=== PATIENT | male | born 1995 | race Caucasian/White ===

== ENCOUNTER 2017-03-06 14:44 | Emergency (ER) | payer BC ==
[~2017-03-06] VITALS: Ht 182.9 cm; Wt 90.7 kg
[2017-03-06] MEDS ORDERED: EMS NS 0.9%(*) 1000 ML BAG 1,000 ML IV ONE (15:10)
--- NOTE | 2017-03-06 15:20 | ER Report ---
History and Physical Time Seen By MD: 14:50 Hx. of Stated Complaint: HIT A TREE WHILE SKIING. LEFT HIP/BUTT CHEEK PAIN (MARCK HERMAN-NICHO) HPI/ROS CHIEF COMPLAINT: Ski accident HISTORY OF PRESENT ILLNESS: This is a 21-year-old male [place] and injured his left hip. Patient states that he was skiing down a run lost control started skipping on his bottom, hit a tree with a glancing blow, then fell over. He was unable to get up without pain to the left hip. He denies hitting his head, no loc, no c-spine pain. The skip hoist operator did transport the patient to the skip hoist operator hut, EMS pick the patient up and was transported to the ED. An IV was started en route, 1 L of normal saline was given, he was also given a total of 150 g of IV fentanyl and round. Patient has no other complaints no nausea, vomiting, shortness of breath, chest pain, abdominal pain, loss of bowel or bladder, no aches, chills, fevers. REVIEW OF SYSTEMS: Constitutional: No fever, no chills. Eyes: No discharge. ENT: No sore throat. Cardiovascular: No chest pain, no palpitations. Respiratory: No cough, no shortness of breath. Gastrointestinal: No abdominal pain, no vomiting. Genitourinary: No hematuria. Musculoskeletal: As above. Skin: No rashes. Neurological: No headache. (MARCK HERMAN-NICHO) Allergies: Coded Allergies: Penicillins (Verified Allergy, Unknown, 03/06/17) Home Meds No Active Prescriptions or Reported Meds Past Medical/Surgical History Patient has a past medical and surgical history of autism, tonsillectomy, wisdom teeth extraction. (MARCK HERMAN-NICHO) Hx Substance Use Disorder: No Hx Alcohol Use: No (MARCK HERMAN) Constitutional Vital Sign - Last 24 Hours 03/06/17 03/06/17 03/06/17 03/06/17 14:44 14:47 15:00 15:14 Temp 97.6 Pulse 93 97 Resp 16 11 B/P (MAP) 128/67 128/67 (87) 120/75 (90) Pulse Ox 96 99 O2 Delivery Room Air 03/06/17 03/06/17 03/06/17 03/06/17 15:29 15:30 15:35 15:50 Pulse 87 100 100 Resp 8 7 12 B/P (MAP) 119/71 (87) Pulse Ox 95 96 97 03/06/17 03/06/17 03/06/17 03/06/17 16:00 16:05 16:14 16:20 Pulse ??? 84 B/P (MAP) ???/??? (1665) 120/77 (91) Pulse Ox 99 03/06/17 03/06/17 03/06/17 03/06/17 16:21 16:30 16:35 16:50 Pulse 95 94 B/P (MAP) 110/51 (70) Pulse Ox 99 98 O2 Flow Rate 2.0 03/06/17 03/06/17 03/06/17 03/06/17 16:55 17:00 17:10 17:25 Pulse 74 91 102 B/P (MAP) 119/64 (82) Pulse Ox 99 100 03/06/17 03/06/17 03/06/17 03/06/17 17:30 17:40 17:55 18:00 Pulse 116 101 B/P (MAP) 131/83 (99) 141/78 (99) Pulse Ox 91 96 03/06/17 03/06/17 03/06/17 03/06/17 18:10 18:25 18:30 18:35 Pulse 107 96 92 B/P (MAP) 106/86 (93) Pulse Ox 99 98 98 03/06/17 18:50 Pulse 88 Pulse Ox 98 ([facility]) Physical Exam General Appearance: The patient is alert, has no immediate need for airway protection and no signs of toxicity. Eyes: Pupils equal and round no pallor or injection. ENT, Mouth: Mucous membranes are moist. Respiratory: There are no retractions, lungs are clear to auscultation. Cardiovascular: Regular rate and rhythm, no murmurs clicks or rubs. Gastrointestinal: Abdomen is soft and non tender, no masses, bowel sounds normal. Neurological: Alert and oriented 4. Moving all extremities. Following all commands. No focal neuro deficits. Skin: Warm and dry, no rashes. Musculoskeletal: Neck is supple non tender. Extremities pain to left hip, unable to lift leg off gurney. No hematoma or swelling noted to left hip. No pain to iliac crest. Pain to femoral head with deep palpation, no crepitus or step-offs noted. Pain to left buttock, no bruising or hematoma noted. No knee or ankle pain. No internal or external rotation of the left leg. DIFFERENTIAL DIAGNOSIS: After history and physical exam differential diagnosis was considered for contusion, femoral neck fracture, pelvic fracture, hematoma. (MARCK HERMAN SHELF STOCKER-BC) Medical Decision Making EKG/Imaging Imaging Location: [facility] - [place] Patient: Mello Alvarado : 1995 Visit/Account:[id number] Date of Sevice: 03/06/2017 EXAMINATION: AP pelvis with lateral left HISTORY: Pain. Skiing accident. COMPARISON: None. FINDINGS: There is linear lucency extending along the superolateral aspect of the left iliac crest, concerning for a nondisplaced iliac fracture. No additional fracture visualized in the bony pelvis or either hip. Joint spaces are preserved at both hips and sacroiliac joints. The proximal femurs appear radiographically intact. Normal mineralization. IMPRESSION: Linear lucency extending along the left iliac crest may represent a nondisplaced fracture. Follow-up pelvis CT could be performed for further evaluation as clinically indicated. Findings were discussed with MARCK HERMAN at 03/06/2017 3:34 PM. Report Dictated By: Prasanna Pandya MD at 03/06/2017 3:29 PM Report E-Signed By: Prasanna Pandya MD at 03/06/2017 3:35 PM WSN:[id number] Location: [facility] - [place] Patient: Mello Alvarado : 1995 Visit/Account:[id number] Date of Sevice: 03/06/2017 ABDOMEN/PELVIS WITH CONTRAST HISTORY: Ski injury TECHNIQUE: Following administration of IV contrast contiguous axial images acquired through the abdomen/pelvis. Coronal and sagittal reformatting also performed. One of the following dose optimization techniques was utilized in the performance of this exam: Automated exposure control; adjustment of the mA and/or kV according to the patient's size; or use of an iterative reconstruction technique. Specific details can be referenced in the facility's radiology CT exam operational policy. CONTRAST: 100 mL Isovue-370 COMPARISON: Radiograph same date with findings concerning for left pelvic fracture. FINDINGS: Visualized lung bases: Negative. Hepatobiliary: Negative. Spleen: Negative. Adrenals: Negative. Pancreas: Negative. Kidneys ureters or bladder: Negative. Genitalia: Negative. GI: Negative. Vessels/spaces/nodes: Negative. Bones/soft tissues: There is a fracture of the left iliac wing which extends inferiorly through the ischium into the left acetabular roof and anterior column of the acetabulum and involving left obturator ring. The inferior pubic ramus is nondisplaced. There is comminution of the acetabular roof with fracture fragments displaced isthmus is 5 mm. There is edema or hemorrhage into the left obturator internus muscle but no free hemorrhage. The right hemipelvis is intact. The proximal femurs are intact. There is L5-S1 spondylolysis. This does not appear to represent acute fractures to the pars interarticularis and precedes the acute injury. Additional findings: None pertinent. IMPRESSION: Fractures through the left pelvis involving the ilium, ischium, and obturator ring. This includes left acetabular fracture which is mildly comminuted involving the anterior column. L5-S1 spondylolysis which appears to be a pre-existing condition rather than acute injury. Report Dictated By: Carlos Back MD at 03/06/2017 4:22 PM Report E-Signed By: Carlos Back MD at 03/06/2017 4:32 PM WSN:[id number] (MARCK HERMAN SHELF STOCKER-BC) ED Course/Re-evaluation Clinical Indication for ER IV: Hydration, IV Access ED Course The patient was admitted to room via EMS. History of physical were obtained. Differential diagnoses were considered. IV was started via EMS. Patient was given a 1 L normal saline bolus. A left hip x-ray was questioned for a fracture. A abdomen pelvis CT was obtained showing fractures through the left pelvis involving the ilium, ishium and obturator ring. Including the acetabulum , which is mildly comminuted involving the anterior column. Patient was also given 4 mg IV Zofran, 1 mg IV Dilaudid. Patient was also given 150 g of IV fentanyl en route. I did speak with Dr. Hernandez as noted below. Then discussed the case with Dr. Boston, [facility] trauma surgeon as noted below. I did discuss these findings with the patient, his brother and via phone, his father. His father and mother are in [place] and will be driving down to [facility]. I did tell the father that we will go ahead and transfer the patient down to [facility] for further evaluation, the brother will ride with the patient in the ambulance. 03/06/2017 5:07:[address] Hernandez regarding the patient's case and he feels that this is a nonoperative injury however it may not be a bad idea to have the patient transported down to [facility] for further evaluation, pain control and possible physical therapy for the injury. I did speak with patient and his brother, they're going to try to get in touch with her parents so that I can discuss this with them. 03/06/2017 5:35:30 pm I did speak with Dr. Boston the trauma surgeon at [facility] regarding the patient's case, I did explain to him that I did speak with Dr. Hernandez the orthopedist otolaryngology surgeon and felt with this acetabular fracture would be better served at [facility] where they could surgically repair the injury if needed. I did speak with the patient's father regarding the conversation I had with Dr. Boston and they are okay with transferring the patient to [facility]. Decision to Disposition Date: Mar 06, 2017 Decision to Disposition Time: 18:04 (MARCK HERMAN SHELF STOCKER-BC) Depart Departure Latest Vital Signs Vital Signs Date Time Temp Pulse Resp B/P (MAP) Pulse Ox O2 Delivery O2 Flow Rate FiO2 03/06/17 18:50 88 98 03/06/17 18:30 106/86 (93) 03/06/17 16:21 2.0 03/06/17 15:50 12 03/06/17 14:44 97.6 Room Air (HAWA ODOM MD) Impression: Primary Impression: Pelvic fracture Additional Impression: Acetabular fracture Condition: Improved Disposition: [facility]FER TO [facility] New Scripts No Active Prescriptions or Reported Meds CONTROL OFFICER MANAGER/PA consult with MD: Verbally MD Consult Note: Reviewed this case with Marck and visited with the patient regarding the results of imaging and plan along with Marck. (HAWA ODOM MD) Problem Qualifiers Primary Impression: Pelvic fracture Encounter type: initial encounter Pelvic bone location: other part of pelvis Fracture type: closed Qualified Codes: S32.89XA - Fracture of other parts of pelvis, initial encounter for closed fracture Additional Impression: Acetabular fracture Encounter type: initial encounter Sublocation of acetabulum: anterior wall Fracture type: closed Fracture alignment: nondisplaced Laterality: left Qualified Codes: S32.415A - Nondisplaced fracture of anterior wall of left acetabulum, initial encounter for closed fracture MARCK HERMAN-NICHO Mar 06, 2017 15:20 HAWA ODOM MD Mar 06, 2017 15:43
--- NOTE | 2017-03-06 15:39 | RADIOLOGY IMAGING REPORT ---
FACILITY: [facility] PATIENT NAME: Mello Alvarado : 1995 MR: [id number] V: [id number] EXAM DATE: ORDERING PHYSICIAN: ZACH HERMAN TECHNOLOGIST: [place] [facility] [place] Patient: Mello Alvarado : 1995 Visit/Account:[id number] Date of Sevice: 03/06/2017 EXAMINATION: AP pelvis with lateral left HISTORY: Pain. Skiing accident. COMPARISON: None. FINDINGS: There is linear lucency extending along the superolateral aspect of the left iliac crest, concerning for a nondisplaced iliac fracture. No additional fracture visualized in the bony pelvis or either hip. Joint spaces are preserved at bot h hips and sacroiliac joints. The proximal femurs appear radiographically intact. Normal mineralizati on. IMPRESSION: Linear lucency extending along the left iliac crest may represent a nondisplaced fractur e. Follow-up pelvis CT could be performed for further evaluation as clinically indicated. Findings were discussed with ZACH HERMAN at 03/06/2017 3:34 PM. Report Dictated By: Prasanna Pandya MD at 03/06/2017 3:29 PM Report E-Signed By: Prasanna Pandya MD at 03/06/2017 3:35 PM WSN:[id number]
[2017-03-06] MEDS ORDERED: NS 0.9% 20 ML SDV 80 ML ONE (15:51)
[2017-03-06] MEDS ORDERED: IOPAMIDOL 76% 100 ML INFUS BTL 100 ML ONE (15:51)
[2017-03-06] MEDS ORDERED: ONDANSETRON 4 MG/2 ML VIAL IVP ONE (16:05)
[2017-03-06] MEDS ORDERED: HYDROmorphone(ER ONLY) 1 MG/ML IVP ONE (16:05)
--- NOTE | 2017-03-06 16:37 | RADIOLOGY IMAGING REPORT ---
FACILITY: [facility] PATIENT NAME: Mello Alvarado : 1995 MR: [id number] V: [id number] EXAM DATE: ORDERING PHYSICIAN: ZACH HERMAN TECHNOLOGIST: [place] [facility] [place]: Mello Alvarado : 1995 Visit/Account:[id number] Date of Sevice: 03/06/2017 ABDOMEN/PELVIS WITH CONTRAST HISTORY: Ski injury TECHNIQUE: Following administration of IV contrast contiguous axial images acquired through the abdom en/pelvis. Coronal and sagittal reformatting also performed. One of the following dose optimization techniques was utilized in the performance of this exam: Automated exposure control; adjustment of t he mA and/or kV according to the patient's size; or use of an iterative reconstruction technique. S pecific details can be referenced in the facility's radiology CT exam operational policy. CONTRAST: 100 mL Isovue-370 COMPARISON: Radiograph same date with findings concerning for left pelvic fracture. FINDINGS: Visualized lung bases: Negative. Hepatobiliary: Negative. Spleen: Negative. Adrenals: Negative. Pancreas: Negative. Kidneys ureters or bladder: Negative. Genitalia: Negative. GI: Negative. Vessels/spaces/nodes: Negative. Bones/soft tissues: There is a fracture of the left iliac wing which extends inferiorly through the ischium into the left acetabular roof and anterior column of the acetabulum and involving left obtura tor ring. The inferior pubic ramus is nondisplaced. There is comminution of the acetabular roof with fracture fragments displaced isthmus is 5 mm. There is edema or hemorrhage into the left obturator in ternus muscle but no free hemorrhage. The right hemipelvis is intact. The proximal femurs are intact. There is L5-S1 spondylolysis. This does not appear to represent acute fractures to the pars interarti cularis and precedes the acute injury. Additional findings: None pertinent. IMPRESSION: Fractures through the left pelvis involving the ilium, ischium, and obturator ring. This includes lef t acetabular fracture which is mildly comminuted involving the anterior column. L5-S1 spondylolysis which appears to be a pre-existing condition rather than acute injury. Report Dictated By: Carlos Back MD at 03/06/2017 4:22 PM Report E-Signed By: Carlos Back MD at 03/06/2017 4:32 PM WSN:[id number]
[2017-03-06 18:30] VITALS: BP 106/86
== END 2017-03-06 19:03 | disposition short-term general hospital (02) ==
LOC: ER 14:48
DX: S32.89XA Fracture of other parts of pelvis, initial encounter for closed fracture (principal); S32.415A Nondisplaced fracture of anterior wall of left acetabulum, initial encounter for closed fracture; W22.09XA Striking against other stationary object, initial encounter; Y93.23 Activity, snow (alpine) (downhill) skiing, snowboarding, sledding, tobogganing and snow tubing; Y92.838 Other recreation area as the place of occurrence of the external cause
CPT/HCPCS: 73502; 74177; 96361; 96374; 96375; 99285; J1170; J2405; J7050; Q9967

== ENCOUNTER → 2017-03-06 | Outpatient (CLI) | payer BC | LOC: AMB 18:48 | PROVIDERS: ATTEND Nurse Practitioner | DX: S32.9XXA Fracture of unspecified parts of lumbosacral spine and pelvis, initial encounter for closed fracture (principal); Y93.23 Activity, snow (alpine) (downhill) skiing, snowboarding, sledding, tobogganing and snow tubing; Y92.838 Other recreation area as the place of occurrence of the external cause; Y99.9 Unspecified external cause status | CPT/HCPCS: A0425; A0426 ==

== ENCOUNTER → 2017-03-06 | Outpatient (CLI) | payer BC | LOC: AMB 13:43 | PROVIDERS: ATTEND Nurse Practitioner | DX: M25.552 Pain in left hip (principal); W22.09XA Striking against other stationary object, initial encounter; Y93.23 Activity, snow (alpine) (downhill) skiing, snowboarding, sledding, tobogganing and snow tubing; Y92.838 Other recreation area as the place of occurrence of the external cause | CPT/HCPCS: A0425; A0427 ==